=== PATIENT | female | born 1955 ===

== ENCOUNTER 2020-06-17 14:48 | Emergency (ER) ==
[~2020-06-17] VITALS: Ht 172.7 cm; Wt 0.8 kg
[2020-06-17 14:51] VITALS: BP 130/56
[2020-06-17] MEDS ORDERED: acetaminophen 650mg rectal suppository RC ONE (15:00)
[2020-06-17] MEDS ORDERED: normal saline 1000ML IV soln IVB ONE (15:00)
== END 2020-06-17 15:05 | disposition left against medical advice (07) ==
LOC: ER 14:49
DX: R50.9 Fever, unspecified (principal); Z53.21 Procedure and treatment not carried out due to patient leaving prior to being seen by health care provider
CPT/HCPCS: 82948; 99283